=== PATIENT | female | born 1975 | race African-American/Black ===

== ENCOUNTER 2018-12-28 10:00 | Inpatient (IN) | payer OTHER ==
[2019-03-06 15:47] VITALS: BMI 28.5
[2019-03-08] MEDS ORDERED: BUPIVACAINE HCL/PF 0.5% (5MG/ML) 10 ML VIAL ONE (08:41)
[2019-03-08] MEDS ORDERED: MIDAZOLAM HCL 2 MG/2 ML SINGLE DOSE VIAL ONE ×3 (08:42→09:25)
[2019-03-08] MEDS ORDERED: DEXAMETHASONE SOD PHOSPHATE 4 MG/1 ML VIAL ONE (09:25)
[2019-03-08] MEDS ORDERED: LIDOCAINE HCL/PF 2% SDV 5ML VIAL ONE (09:25)
[2019-03-08] MEDS ORDERED: fentaNYL CITRATE 250 MCG/5 ML VIAL ONE (09:25)
[2019-03-08] MEDS ORDERED: ROCURONIUM BROMIDE 50 MG/5 ML VIAL ONE (09:25)
[2019-03-08] MEDS ORDERED: PROPOFOL 20 ML ONE (09:25)
[2019-03-08 09:49] LABS: ALBUMIN 3.5 g/dl (3.4-5.0); BILIRUBIN,DIRECT 0.1 mg/dL (0.0-0.2); BILIRUBIN,TOTAL 0.3 mg/dL (0.2-1); TOT PROT 7.3 g/dl (6.4-8.2)
[2019-03-08] MEDS ORDERED: ONDANSETRON 4 MG/2 ML VIAL IVPUSH PRN ×2 (10:08→15:07)
[2019-03-08] MEDS ORDERED: oxyCODONE HCL 5 MG TABLET PO PRN (10:08)
--- NOTE | 2019-03-08 10:21 | HP ---
History & Physical Update - History History: No Change - Physical Physical: No Change - Assessment Assessment: No Change - Plan Plan: No Change (Agree with H&P from 03/06, for abdominal myomectomy 2/2 fibroids.)
[2019-03-08] MEDS ORDERED: ceFAZolin 2 GRAM PREMIX BAG IVPB ONE (10:45)
[2019-03-08] MEDS ORDERED: ceFAZolin SODIUM 1 GM VIAL ONE (10:46)
[2019-03-08] MEDS ORDERED: NEOSTIGMINE METHYLSULFATE 0.5 MG/1 ML - 10 ML MDV ONE (12:34)
[2019-03-08] MEDS ORDERED: GLYCOPYRROLATE 0.2 MG/1 ML VIAL ONE (12:34)
--- NOTE | 2019-03-08 13:11 | OP ---
Operative Note - Note: Operative Date: 03/08/19 Pre-Operative Diagnosis: leiomyomatous uterus Operation: abdominal myomectomy Findings: two dominant large uterine fibroids multiple small intramural fibroids normal b/l tubes and ovaries Post-Operative Diagnosis: Same as Pre-op Surgeon: Cecilia Oconnor Financial Accountant: Manpreet Clayton Anesthesiologist/NURSE STAFF [facility]: Eleuterio Ford Anesthesia: General Specimens Removed: Multiple uterine fibroids Estimated Blood Loss (mls): 500 Operative Report Dictated: Yes
[2019-03-08] MEDS ORDERED: BENZOCAINE/MENTH/CETYLPYRD CL 1 EACH LOZENGE MM PRN (13:50)
[2019-03-08] MEDS ORDERED: SIMETHICONE 80 MG TAB.CHEW (FP) PO PRN (13:50)
[2019-03-08] MEDS ORDERED: POLYETHYLENE GLYCOL 3350 119 GM BTL PO PRN (14:09)
--- NOTE | 2019-03-08 14:10 | SURG ---
Surgery Well Service Floorperson Note Well Service Floorperson: Manpreet Clayton PA-C (Suzy) Date of Service: 03/08/19 Diagnosis: Leiomyomatous uterus Procedure: abdominal myomectomy I was present for the entirety of the operative procedure. For further detail, please refer to operative report. Visit type - Case Type Case Type: Scheduled - Emergency Emergency Visit: No - New patient This patient is new to me today: Yes Date on this admission: 03/08/19 - Critical Care Critical Care patient: No
[2019-03-08] MEDS ORDERED: IBUPROFEN 800 MG/8 ML IJ IVPB PRN (14:13)
[2019-03-08] MEDS ORDERED: RANITIDINE HCL 150 MG TABLET (FP) PO PRN (14:13)
[2019-03-08] MEDS ORDERED: HYDROmorphone *PCA* 10MG/50ML DISP.SYRIN PCA ONE (14:15)
[2019-03-08] MEDS: HYDROmorphone *PCA* 10MG/50ML DISP.SYRIN PCA SCH ×2 (14:23→20:02)
[2019-03-08 14:34] LABS: BASO % 0.1 % (0-2.0); EOS % 0.1 % (0-4.5); HEMATOCRIT 26.9 % (32.4-45.2); LYMPH % 7.4 % (8-40); MCH 22.6 pg (25.7-33.7); MCHC 29.6 g/dl (32.0-36.0); MEAN CELL VOLUME 76.1 fl (80-96); MEAN PLT VOLUME 7.7 fl (7.5-11.1); MONO % 2.8 % (3.8-10.2); NEUT % 89.6 % (42.8-82.8); PLATELET COUNT 305 K/MM3 (134-434); RBC 3.53 M/mm3 (3.60-5.2); RDW 17.4 % (11.6-15.6); WHITE BLOOD COUNT 18.5 K/mm3 (4.0-10.0)
[2019-03-08] MEDS ORDERED: HYDROmorphone *PCA* 10MG/50ML DISP.SYRIN PCA SCH (15:15)
[2019-03-08] MEDS ORDERED: ACETAMINOPHEN INJECTION 100 ML IVPB ONE (15:30)
[2019-03-08] MEDS: LACTATED RINGERS SOLUTION 1,000 ML IV SCH (15:30)
[2019-03-08] MEDS: ACETAMINOPHEN 1000 MG/100 ML VIAL (NON FORMULARY) IVPB PRN (15:35)
[2019-03-08] MEDS: CEFAZOLIN 2 GM/D5W 2 GM/50 ML ML IVPB SCH (19:45)
--- NOTE | 2019-03-08 21:12 | PN ---
Progress Note, Physician Chief Complaint: Pt seen/evaluated and doing well. Pain controlled. no N/V. minimal VB. No complaints. - Current Medication List Current Medications: Active Medications Acetaminophen (Ofirmev Injection -) 1,000 mg IVPB Q6H PRN PRN Reason: PAIN OR FEVER Last Admin: 03/08/19 15:35 Dose: 1,000 mg Benzocaine/Menthol (Cepacol Lozenge -) 1 each MM PRN PRN PRN Reason: SORE THROAT Diphenhydramine HCl (Benadryl Injection -) 12.5 mg IVPUSH ONCE PRN PRN Reason: FOR ITCHING Docusate Sodium (Colace -) 100 mg PO BID STEVE Enoxaparin Sodium (Lovenox -) 40 mg SQ DAILY STEVE Hydromorphone HCl (Dilaudid Oracle Consultant -) 0 mg FOOD BEVERAGE ATTENDANT FOOD BEVERAGE ATTENDANT [facility]; Protocol Stop: 03/15/19 15:08 Last Admin: 03/08/19 20:01 Dose: Not Given Lactated Ringer's (Lactated Ringers Solution) 1,000 mls @ 125 mls/hr IV ASDIR [facility] Last Admin: 03/08/19 15:30 Dose: 50 mls Cefazolin Sodium/Dextrose (Ancef 2 Gm Premixed Ivpb -) 2 gm in 50 mls @ 200 mls /hr IVPB Q8HIV [facility] Stop: 03/09/19 02:14 Last Admin: 03/08/19 19:45 Dose: 200 mls/hr Ibuprofen (Caldolor Injection -) 600 mg IVPB Q8H PRN PRN Reason: PAIN LEVEL 1-5 Ondansetron HCl (Zofran Injection) 4 mg IVPUSH Q4H PRN PRN Reason: NAUSEA AND/OR VOMITING Polyethylene Glycol (Miralax (For Daily Use) -) 17 gm PO DAILY PRN PRN Reason: CONSTIPATION Ranitidine HCl (Zantac -) 150 mg PO DAILY PRN PRN Reason: INDIGESTION Simethicone (Mylicon -) 80 mg PO Q4H PRN PRN Reason: GAS - Objective Vital Signs: Vital Signs Temperature 98 F 03/08/19 17:00 Pulse Rate 98 H 03/08/19 19:46 Respiratory Rate 18 03/08/19 19:46 Blood Pressure 125/70 03/08/19 19:46 O2 Sat by Pulse Oximetry (%) 100 03/08/19 19:46 Constitutional: Yes: Well Nourished Eyes: Yes: WNL HENT: Yes: WNL Neck: Yes: WNL Cardiovascular: Yes: Regular Rate and Rhythm Respiratory: Yes: Regular Gastrointestinal: Yes: Soft. No: Tenderness Extremities: Yes: WNL Wound/Incision: Yes: Dressing Dry and Intact Neurological: Yes: Alert, Oriented Psychiatric: Yes: Alert, Oriented Labs: CBC, BMP 03/08/19 14:05 Problem List - Problems (1) S/P myomectomy Code(s): Z98.890 - OTHER SPECIFIED POSTPROCEDURAL STATES (2) Anemia Code(s): D64.9 - ANEMIA, UNSPECIFIED Assessment/Plan POD#0 s/p abdominal myomectomy EBL 500cc Hgb 8.0 post procedure, repeat Hgb pending, 2 units PRBC crossmatched if needed ok for clear liquids advance diet as tolerated d/c braydon in a.m. ONASIM in a.m. labs in a.m.
[2019-03-08] MEDS: DOCUSATE SODIUM 100 MG CAPSULE (FP) PO SCH (21:18)
[2019-03-08 21:53] LABS: BASO % 0.1 % (0-2.0); HEMOGLOBIN 7.4 GM/dL (10.7-15.3); LYMPH % 6.5 % (8-40); MCH 22.4 pg (25.7-33.7); MCHC 29.6 g/dl (32.0-36.0); MEAN CELL VOLUME 75.5 fl (80-96); MEAN PLT VOLUME 8.1 fl (7.5-11.1); MONO % 4.9 % (3.8-10.2); NEUT % 88.5 % (42.8-82.8); PLATELET COUNT 285 K/MM3 (134-434); RBC 3.32 M/mm3 (3.60-5.2); RDW 17.4 % (11.6-15.6); WHITE BLOOD COUNT 11.5 K/mm3 (4.0-10.0)
[2019-03-08 22:29] LABS: ALBUMIN 2.7 g/dl (3.4-5.0); BILIRUBIN,TOTAL 0.4 mg/dL (0.2-1); CREATININE 0.6 mg/dL (0.55-1.3); POTASSIUM 4.4 mmol/L (3.5-5.1); TOT PROT 5.7 g/dl (6.4-8.2)
[2019-03-09] MEDS: CEFAZOLIN 2 GM/D5W 2 GM/50 ML ML IVPB SCH (01:52)
--- NOTE | 2019-03-09 07:43 | SPA.POSTOP ---
- POST-OP NOTE POD #1 s/p abdominal myomectomy (leiomyomatous uterus) No acute events since surgical procedure per RN notes. Patient resting comfortably. C/o incisional tenderness. Adequate pain management via prn meds. using her spirometer as directed. Hasn't been OOB yet. Denies n/v/f/c, CP or SOB. Last Vital Signs Temp Pulse Resp BP Pulse Ox 99.1 F 81 18 133/65 100 03/09/19 06:00 03/09/19 06:23 03/09/19 06:23 03/09/19 06:23 03/09/19 06:23 Trends 03/08/19 03/08/19 14:05 21:00 Hgb 8.0 L 7.4 L Hct 26.9 L 25.0 L Plt Count 305 285 Physical Exam General: No acute distress. Pulm: Clear to auscultation bilat Cor: RRR Abd: Soft. Dressing c/d/i. : bryson to gravity (clear) LE: Soft, non-tender bilat. SCD's bilat. Problem List - Problems (1) S/P myomectomy Assessment/Plan: dc bryson and begin TOV dc FOOT SETTER and begin prn PO pain management w/ IV for break through regular diet oob and ambulate dc planning in AM Ferrous Sulfate 325 mg PO daily Code(s): Z98.890 - OTHER SPECIFIED POSTPROCEDURAL STATES Visit type - Case Type Case Type: Scheduled - New patient This patient is new to me today: Yes Date on this admission: 03/09/19
[2019-03-09] MEDS ORDERED: HYDROmorphone HCL CARPU-JECT 2 MG/1 ML DISP.SYRIN IVPB PRN (07:50)
--- NOTE | 2019-03-09 08:22 | OP ---
DATE OF OPERATION: 03/08/2019 PREOPERATIVE DIAGNOSIS: Leiomyomatous uterus. POSTOPERATIVE DIAGNOSIS: Leiomyomatous uterus. PROCEDURE PERFORMED: Abdominal myomectomy. SURGEON: Cecilia Oconnor DO ANESTHESIA: General. ANESTHESIOLOGIST: Grace Lemus MD, and Eleuterio Ford CRNA MENAGERIE SUPERINTENDENT: PAM ESTIMATED BLOOD LOSS: 500 mL. SPECIMENS REMOVED: Uterine fibroids. COMPLICATIONS: None. DISPOSITION: Stable to PACU. COUNTS: Sponge, needle and instrument counts correct. BRIEF HISTORY: The patient is 43-year-old female who was followed in the office for a known large fibroid uterus. She was counseled on her options and elected to undergo an abdominal myomectomy procedure. The patient signed the consent for the procedure in the office on March 06, 2019. DESCRIPTION OF PROCEDURE: On March 08, 2019, the patient was admitted to [facility]. Consents were reconfirmed. She was taken back to the operating room, given general anesthesia and placed in the dorsal supine position. A Ramirez catheter was placed under sterile conditions. She was prepped and draped in the usual sterile fashion, and a hard time-out was performed. A Pfannenstiel skin incision was created in the skin with a scalpel and carried to the underlying layer of rectus fascia with the Bovie. The fascia was incised on either side of the midline and extended in a superolateral direction sharply. The fascia was tented upward and dissected off the underlying layer of rectus muscle sharply and bluntly. The musculature was identified in the midline. The muscles were laterally, and the peritoneum was then entered bluntly and dissected bluntly to allow for adequate room for the procedure. The uterus was exteriorized from the abdomen. Two large dominant fibroids were noted, and multiple intramural small uterine fibroids were appreciated. Approximately 15 mL of dilute vasopressin was injected into the uterine body. Over each fibroid, an incision was made in the uterine serosa, and the fibroids were decapsulated one by one until all the fibroids that were palpated were removed. The defects were reapproximated using 0 Vicryl, first closing the deep space with [id number] sutures and interrupted sutures, and closing the serosa in an imbricating fashion. Any areas of bleeding along any of the incisions were controlled with 2-0 Vicryl suture until excellent hemostasis was achieved. Interceed and Surgicel were placed on areas of concern for bleeding or adhesion formation. The uterus was placed back into the abdomen. The abdomen was cleared of blood clots and debris. Excellent hemostasis was noted. The peritoneum and musculature were reapproximated in a single layer using 0 Vicryl in a running fashion. The fascia was then reapproximated using 1 Vicryl in a running fashion. The subcutaneous tissue was irrigated and reapproximated using 3-0 Vicryl. The skin was reapproximated in subcuticular fashion. Steri-Strips were applied. The patient was awoken from anesthesia and recovered in a stable condition in the PACU after the procedure. CECILIA OCONNOR DO /[id number]
[2019-03-09 08:25] LABS: BASO % 0.1 % (0-2.0); HEMATOCRIT 21.7 % (32.4-45.2); LYMPH % 11.3 % (8-40); MCH 22.9 pg (25.7-33.7); MEAN PLT VOLUME 7.9 fl (7.5-11.1); MONO % 11.5 % (3.8-10.2); NEUT % 77.1 % (42.8-82.8); PLATELET COUNT 268 K/MM3 (134-434); RBC 2.94 M/mm3 (3.60-5.2); RDW 17.5 % (11.6-15.6)
[2019-03-09] MEDS ORDERED: ACETAMINOPHEN 325 MG TABLET (FP) PO PRN (08:32)
[2019-03-09 08:45] LABS: ALBUMIN 2.6 g/dl (3.4-5.0); BILIRUBIN,TOTAL 0.5 mg/dL (0.2-1); CALCIUM 8.3 mg/dL (8.5-10.1); CREATININE 0.5 mg/dL (0.55-1.3); TOT PROT 5.4 g/dl (6.4-8.2)
[2019-03-09 09:45] LABS: HEMOGLOBIN 6.7 GM/dL (10.7-15.3)
[2019-03-09] MEDS: DOCUSATE SODIUM 100 MG CAPSULE (FP) PO SCH ×2 (10:42→21:11)
[2019-03-09] MEDS: FERROUS SO4 325 MG TABLET (FP) PO SCH (10:42)
[2019-03-09] MEDS: ENOXAPARIN NA (PORCINE) 40 MG/0.4 ML DISP.SYRIN SQ SCH (10:43)
[2019-03-09] MEDS: oxyCODONE HCL 5 MG TABLET PO PRN (14:01)
[2019-03-09] MEDS: LACTATED RINGERS SOLUTION 1,000 ML IV SCH (14:04)
[2019-03-09] MEDS ORDERED: HYDROmorphone HCl 2 MG/ML VIAL IVPB PRN (16:01)
[2019-03-09 20:15] LABS: HEMATOCRIT 26.3 % (32.4-45.2); MCH 23.6 pg (25.7-33.7); MCHC 30.3 g/dl (32.0-36.0); MEAN CELL VOLUME 77.8 fl (80-96); MEAN PLT VOLUME 8.4 fl (7.5-11.1); PLATELET COUNT 247 K/MM3 (134-434); RBC 3.38 M/mm3 (3.60-5.2); RDW 19.3 % (11.6-15.6); WHITE BLOOD COUNT 12.3 K/mm3 (4.0-10.0)
[2019-03-09] MEDS: ACETAMINOPHEN 1000 MG/100 ML VIAL (NON FORMULARY) IVPB PRN (23:38)
[2019-03-10] MEDS: LACTATED RINGERS SOLUTION 1,000 ML IV SCH ×3 (02:00→12:14)
[2019-03-10] MEDS: ACETAMINOPHEN 1000 MG/100 ML VIAL (NON FORMULARY) IVPB PRN (06:49)
[2019-03-10 08:03] LABS: BASO % 0.5 % (0-2.0); EOS % 0.6 % (0-4.5); HEMATOCRIT 24.5 % (32.4-45.2); HEMOGLOBIN 7.7 GM/dL (10.7-15.3); LYMPH % 14.8 % (8-40); MCHC 31.4 g/dl (32.0-36.0); MEAN CELL VOLUME 76.2 fl (80-96); MEAN PLT VOLUME 8.1 fl (7.5-11.1); MONO % 11.1 % (3.8-10.2); PLATELET COUNT 255 K/MM3 (134-434); RBC 3.21 M/mm3 (3.60-5.2); RDW 18.3 % (11.6-15.6); WHITE BLOOD COUNT 11.2 K/mm3 (4.0-10.0)
[2019-03-10 08:20] LABS: ALBUMIN 2.6 g/dl (3.4-5.0); BILIRUBIN,TOTAL 0.5 mg/dL (0.2-1); CALCIUM 8.2 mg/dL (8.5-10.1); CREATININE 0.6 mg/dL (0.55-1.3); POTASSIUM 3.8 mmol/L (3.5-5.1); TOT PROT 5.8 g/dl (6.4-8.2)
--- NOTE | 2019-03-10 08:24 | PN ---
Progress Note (short form) - Note Progress Note: POD 2, s/p open abdominal myomectomy Pt seen and examined. S/P 2 units pRBC yesterday for hemoglobin 6.7. Reports she is feeling better since receiving blood. Has been oob to the restroom without issue. Tolerating minimal PO, reports lack of appetite. Urinating without issue. No vaginal bleeding. Passing flatus, no BM yet. Denies cp/sob, n/ v/d, calf pain/edema. Vital Signs Temp 98.2 F 03/10/19 06:31 Pulse 94 H 03/10/19 06:31 Resp 20 03/10/19 06:31 BP 111/65 03/10/19 06:31 Pulse Ox 97 03/09/19 21:00 Intake & Output 03/09/19 03/09/19 03/10/19 11:59 23:59 11:59 Intake Total 1745 1250 Output Total 1999 1600 Balance -1999 145 1250 Weight 186 lb 186 lb 14.4 oz Intake: IV 775 1250 Lactated Ringers Solution 775 1250 1,000 ml @ 125 mls/hr IV ASDIR STEVE Rx#: [id number] IVPB 100 Oral 520 Packed Cells 350 Output: Urine 1999 1600 Ramirez 2000 Void 1600 Other: Voiding Method Indwelling Catheter Toilet Bowel Movement No No Weight Measurement Method Built in Bedscale Built in Bedscale CBC, BMP 03/10/19 06:30 03/10/19 06:30 Gen: awake, alert, nad. Resting comfortably in bed Resp: CTA b/l anteriorly CV: low grade tachycardia, s1s2 Abdo: soft, +ttp near incision. Incision c/d/i no bleeding or drainage noted on dressing LEs: b/l les with teds in place, calfs soft, nt A/P: 43 y/o F w/ PMHx leiomyomas/pelvic pain now POD 2, s/p open abominal myomectomy. 03/09: S/P 2 units pRBCS Low grade fever last night (100.3), tachy to low 100s, remainder of VSS Labs reviewed hgb at 7.7 today from 6.7 yesterday -will recheck pt this afternoon prior to discharge -Continue diet as tolerated -Continue current pain regimen: ofirmev 1g q6prn pain, ibuprofen 600mg q8hrs prn , oxy 5/10mg q4hrs prn, dilaudid 2mg q4hrs prn btp -Bowel regimen -OOB -Keep dressing c/d/i -Zofran prn -Incentive spirometer encouraged -VS per protocol d/w attending Dr Oconnor
[2019-03-10] MEDS ORDERED: oxyCODONE HCL 5 MG TABLET PO PRN (08:47)
[2019-03-10] MEDS: ENOXAPARIN NA (PORCINE) 40 MG/0.4 ML DISP.SYRIN SQ SCH (09:06)
[2019-03-10] MEDS: FERROUS SO4 325 MG TABLET (FP) PO SCH (09:06)
[2019-03-10] MEDS: DOCUSATE SODIUM 100 MG CAPSULE (FP) PO SCH (09:06)
[2019-03-10] MEDS ORDERED: POLYETHYLENE GLYCOL 3350 119 GM BTL PO SCH (10:30)
[2019-03-10] MEDS: oxyCODONE HCL 5 MG TABLET PO PRN (10:52)
[2019-03-10 15:34] VITALS: TEMP 98.4
[2019-03-10 19:00] VITALS: BP 110/65; PULSE 89
--- NOTE | 2019-03-15 16:55 | PATH ---
Surgical Pathology Report Patient Name: SU RAZA Med. Rec. #: [id number] /Age/Gender: 1975 (Age: 43) / F Account: [id number] Location: [facility] MED/SURG Taken: 03/08/2019 Received: 03/09/2019 Reported: 03/15/2019 Physicians: Cecilia Oconnor M.D. Specimen(s) Received FIBROIDS Clinical History Fibroids menorrhagia Final Diagnosis FIBROIDS, ABDOMINAL MYOMECTOMY: 269 G LEIOMYOMA(TA), FOCALLY CALCIFIED. Electronically Signed Beryl Martinez M.D. Gross Description Received in formalin labeled "fibroids" multiple fibrous nodules weighing 269 g, ranging in size from 1-7 cm consistent with fibroids. One of the larger nodules is calcified. The remainder of the nodules show whorled- bautista cut surface. No hemorrhage or necrosis identified. Cardiac Rehabilitation Specialist sections are submitted in 4 cassettes as follows: 1-calcified nodule, after decalcification, 2-smaller nodules, 3-4 largest nodule. MLSZ/03/09/2019 sanml/03/09/2019
== END 2019-03-10 21:58 | disposition home or self-care (01) | DRG 743 ==
LOC: JSAMEDAYSX 03-08 04:56 → J8W 03-08 18:05
PROVIDERS: ADMIT Obstetrics & Gynecology; ATTEND Obstetrics & Gynecology
PROC: 0UB90ZZ Excision of Uterus, Open Approach (ICD-10-PCS; principal; 2019-03-08 10:30)
PROC: 30233N1 Transfusion of Nonautologous Red Blood Cells into Peripheral Vein, Percutaneous Approach (ICD-10-PCS; 2019-03-09)
DX: D25.1 Intramural leiomyoma of uterus (principal); D64.9 Anemia, unspecified
CPT/HCPCS: 36415; 36430; 80053; 80076; 85025; 85027; 86850; 86900; 86901; 86922; 88305-TC; 88311-TC; 94760; J0131; P9038; P9058

== ENCOUNTER 2024-11-13 04:12 | Inpatient (IN) | payer OTHER ==
[2024-11-09 14:58] VITALS: BMI 30.4
[2024-11-13] MEDS: PHENAZOPYRIDINE HCL 100 MG TABLET (FP) PO ONE (06:57)
[2024-11-13] MEDS ORDERED: BUPIVACAINE HCL/PF 0.5% (5MG/ML) 10 ML VIAL ONE (07:36)
[2024-11-13] MEDS ORDERED: LIDOCAINE HCL 1%, 10 MG/ML (20ML VIAL) ONE (07:36)
[2024-11-13] MEDS ORDERED: PROPOFOL 40 ML ONE ×2 (07:45→08:24)
[2024-11-13] MEDS ORDERED: MIDAZOLAM HCL 2 MG/2 ML SINGLE DOSE VIAL ONE (07:45)
[2024-11-13] MEDS ORDERED: ROCURONIUM BROMIDE 50 MG/5 ML VIAL ONE (07:46)
[2024-11-13] MEDS: ceFAZolin SODIUM 1 GM VIAL IVPB ONE (08:22)
[2024-11-13] MEDS ORDERED: HYDROmorphone HCl 2 MG/ML VIAL ONE (08:41)
[2024-11-13] MEDS ORDERED: TRANEXAMIC ACID 1000 MG/10 ML VIAL ONE (08:55)
[2024-11-13] MEDS: ACETAMINOPHEN 1000 MG/100 ML BAG IVPB ONE (09:00)
[2024-11-13] MEDS ORDERED: METOPROLOL TARTRATE 5 MG/5 ML VIAL ONE (09:19)
[2024-11-13] MEDS ORDERED: SUGAMMADEX SODIUM 200 MG/2 ML VIAL ONE (10:30)
[2024-11-13] MEDS ORDERED: ONDANSETRON 4 MG/2 ML VIAL IVPUSH PRN ×2 (10:46→10:51)
[2024-11-13] MEDS ORDERED: oxyCODONE HCL 5 MG TABLET PO PRN (10:46)
[2024-11-13] MEDS ORDERED: BISACODYL 5 MG TABLET.DR (FP) PO PRN (10:46)
[2024-11-13] MEDS: TRANEXAMIC ACID 1000 MG/10 ML VIAL IVPUSH ONE (12:06)
[2024-11-13] MEDS: CEFAZOLIN 2 GM in DEXTROSE 5%-WATER - 100 ML IVPB ONE (12:07)
[2024-11-13] MEDS ORDERED: HYDROmorphone *PCA* 10MG/50ML DISP.SYRIN ONE (12:12)
[2024-11-13] MEDS: HYDROmorphone *PCA* 10MG/50ML DISP.SYRIN PCA SCH (13:35)
[2024-11-13] MEDS: LACTATED RINGERS SOLUTION 1,000 ML IV SCH (13:35)
[2024-11-13 17:42] LABS: HEMATOCRIT 33.1 % (32.4-45.2); MCH 23.1 pg (25.7-33.7); MCHC 30.1 g/dl (32.0-36.0); MEAN CELL VOLUME 76.5 fl (80-96); MEAN PLT VOLUME 8.3 fl (7.5-11.1); PLATELET COUNT 264 10^3/uL (134-434); RBC 4.33 M/mm3 (3.60-5.2); RDW 18.9 % (11.6-15.6); WHITE BLOOD COUNT 15.7 K/mm3 (4.0-10.0)
[2024-11-13] MEDS: ACETAMINOPHEN 1000 MG/100 ML BAG IVPB SCH (17:42)
[2024-11-13 18:03] LABS: POTASSIUM 4.4 mmol/L (3.5-5.1)
[2024-11-13 18:06] LABS: CALCIUM 8.8 mg/dL (8.5-10.1)
[2024-11-13 18:10] LABS: CREATININE 0.6 mg/dL (0.55-1.3)
[2024-11-13] MEDS: CEFAZOLIN 1 GM/D5W 1 GM/50 ML BAG IVPB SCH ×2 (19:22→19:30)
[2024-11-13] MEDS: SIMETHICONE 80 MG TAB.CHEW (FP) PO PRN (20:43)
[2024-11-13] MEDS: IBUPROFEN 800 MG/8 ML IJ IVPB SCH (20:43)
[2024-11-13] MEDS: FERROUS SO4 325 MG TABLET (FP) PO SCH (22:12)
[2024-11-14] MEDS: DOCUSATE SODIUM 100 MG CAPSULE (FP) PO PRN (05:38)
[2024-11-14] MEDS: IBUPROFEN 800 MG/8 ML IJ IVPB SCH (07:24)
[2024-11-14 08:06] LABS: HEMATOCRIT 28.6 % (32.4-45.2); HEMOGLOBIN 8.5 GM/dL (10.7-15.3); MCH 22.8 pg (25.7-33.7); MCHC 29.7 g/dl (32.0-36.0); MEAN CELL VOLUME 76.5 fl (80-96); PLATELET COUNT 239 10^3/uL (134-434); RBC 3.73 M/mm3 (3.60-5.2); RDW 18.9 % (11.6-15.6); WHITE BLOOD COUNT 12.2 K/mm3 (4.0-10.0)
[2024-11-14 08:19] LABS: POTASSIUM 3.6 mmol/L (3.5-5.1)
[2024-11-14 08:20] LABS: CALCIUM 8.4 mg/dL (8.5-10.1)
[2024-11-14 08:21] LABS: BLOOD UREA NITROGEN 8.5 mg/dL (7-18)
[2024-11-14 08:24] LABS: CREATININE 0.6 mg/dL (0.55-1.3)
[2024-11-14] MEDS: VITAMIN B COMPLEX W/C COMBO TABLET (FP) PO SCH (09:28)
[2024-11-14] MEDS: ENOXAPARIN NA (PORCINE) 40 MG/0.4 ML DISP.SYRIN SQ SCH (09:28)
[2024-11-14] MEDS: oxyCODONE HCL 5 MG TABLET PO PRN (12:06)
[2024-11-14] MEDS: IBUPROFEN 600 MG TABLET (FP) PO PRN (18:04)
[2024-11-14 21:10] VITALS: RESP 16
[2024-11-15] MEDS: ACETAMINOPHEN 500 MG TABLET (FP) PO PRN (06:44)
[2024-11-15 08:30] VITALS: TEMP 98.7
[2024-11-15 08:41] VITALS: BP 122/75; PULSE 96
== END 2024-11-15 16:15 | disposition home or self-care (01) | DRG 743 ==
LOC: J2C 04:12 → J3W 14:50
PROVIDERS: ADMIT Obstetrics & Gynecology; ATTEND Obstetrics & Gynecology
PROC: 0UT90ZZ Resection of Uterus, Open Approach (ICD-10-PCS; principal; 2024-11-13 09:30)
PROC: 0UT70ZZ Resection of Bilateral Fallopian Tubes, Open Approach (ICD-10-PCS; 2024-11-13 09:30)
PROC: 0UB00ZZ Excision of Right Ovary, Open Approach (ICD-10-PCS; 2024-11-13 09:30)
DX: D25.9 Leiomyoma of uterus, unspecified (principal); N92.0 Excessive and frequent menstruation with regular cycle; D25.1 Intramural leiomyoma of uterus
CPT/HCPCS: 36415; 36430; 80048; 81025; 85027; 86922; 88305-TC; 88307-TC; 88341-TC; 88342-TC; 94010; 94760; J0131; P9058